=== PATIENT | female | born 1985 | race Two or more races ===

== ENCOUNTER 2017-05-10 07:27 | Day surgery (SDC) | payer MEDICAID ==
[2017-05-07 08:28] LABS: HEMATOCRIT 39.6 % (36.0-48.0); HEMOGLOBIN 13.5 g/dL (12-16); MCH 31.3 pg (26.0-34.0); MCHC 34.1 g/dL (31.0-37.0); MCV 91.7 fL (80.0-100.0); MEAN PLATELET VOLUME 9.5 fL (7.4-10.4); RBC 4.32 10x6/uL (4.00-5.40); RDW 12.9 % (11.5-14.5); WBC 10.2 10x3/uL (4.8-10.8)
[~2017-05-10] VITALS: Ht 154.9 cm; Wt 71.2 kg
[2017-05-10 05:48] VITALS: BP 112/71; Ht 154.9 cm; Wt 71.2 kg
[~2017-05-10 07:27] MED LIST: AMOXICILLIN875 MG PO; BACTRIM DS TABL1 TAB PO; FLUTICASONE PRO16 GM NASAL; HYDROCODONE-APA1 TAB PO; PHENERGAN25 M1 PO; SINGULAIR10 MG PO
[2017-05-10] MEDS ORDERED: HYDROCODONE-APA1 TAB PO (08:46)
--- NOTE | 2017-05-10 10:03 | NUR ---
1000 BREATHING EASY, FL DIET SERVED.
--- NOTE | 2017-05-10 10:32 | NUR ---
1030 BASIN PROVIDED, COOL CLOTH FOR FACE, ZOFRAN 4MG IV GIVEN.
--- NOTE | 2017-05-10 15:31 | OP ---
PATIENT NAME: MARTINA CAMACHO MEDICAL RECORD: [id number] :81 LOCATION:D.OPS ADMISSION DATE: SURGEON: FRANCIE ANDINO MD DATE OF OPERATION: 05/10/2017 PREOPERATIVE DIAGNOSIS: Painful hardware of the left clavicle. POSTOPERATIVE DIAGNOSIS: Painful hardware of the left clavicle. PROCEDURE: Removal of painful hardware of the left clavicle. SURGEON: Francie Andino MD ANESTHESIA: General. INTRAOPERATIVE COMPLICATIONS: None. SUMMARY OF PATHOLOGIC FINDINGS: Clavicle was well healed, the plate was removed with a little degree of difficulty. OPERATIVE SUMMARY IN DETAIL: After obtaining the appropriate preoperative orthopedic surgery consent as well as anesthetic consultation, evaluation and clearance, the patient was brought to the operating room and placed on the operating table in supine position. After adequate general laryngeal mask was administered, the patient was placed in slight beach chair position. The left clavicular and shoulder were prepped and draped in a routine sterile fashion. An incision was made over the previous incision taken directly down to the plate. Serial and sequential removal of the screws followed by removal of the plate was done. The wound was copiously irrigated and closed with 2-0 Vicryl followed by 4-0 Prolene in running fashion. Sterile dressings were applied. The patient was awakened and taken to recovery room in stable condition. All final needle and sponge counts were correct. 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
== END 2017-05-10 11:45 | disposition home or self-care (01) ==
LOC: D.OPS 07:27 → D.PAN 07:30 → D.OPS 11:45
PROVIDERS: Anesthesiology
DX: T85.848A Pain due to other internal prosthetic devices, implants and grafts, initial encounter (principal); J45.909 Unspecified asthma, uncomplicated; Z01.812 Encounter for preprocedural laboratory examination

== ENCOUNTER 2019-05-23 15:45 | Emergency (ER) | payer MEDICAID ==
[~2019-05-23] VITALS: Ht 154.9 cm; Wt 72.7 kg
[2019-05-23 15:56] VITALS: Ht 154.9 cm; Wt 72.7 kg
[2019-05-23 16:30] LABS: BASOPHILS 0.2 % (0-2); EOSINOPHILS 1.5 % (0-7); HEMATOCRIT 37.2 % (36.0-48.0); HEMOGLOBIN 12.8 g/dL (12-16); IMMATURE GRANULOCYTES 0.3 % (0-5); LYMPHOCYTES 34.9 % (15-50); MCH 30.2 pg (26.0-34.0); MCHC 34.4 g/dL (31.0-37.0); MCV 87.7 fL (80.0-100.0); MEAN PLATELET VOLUME 9.8 fL (7.4-10.4); MONOCYTES 7.2 % (2-11); NEUTROPHILS 55.9 % (40-80); PLATELET COUNT 277 10x3/uL (130-400); RBC 4.24 10x6/uL (4.00-5.40); RDW 12.5 % (11.5-14.5); WBC 11.6 10x3/uL (4.8-10.8)
[2019-05-23 16:48] LABS: ALBUMIN 3.6 g/dL (3.4-5.0); ALKALINE PHOSPHATASE 77 U/L (46-116); ALT (SGPT) 15 U/L (10-68); BILIRUBIN - TOTAL 0.31 mg/dL (0.2-1.3); CALC OSMOLALITY 284 mosm/kg (275-300); CALCIUM 8.3 mg/dL (8.5-10.1); CARBON DIOXIDE 28.5 mmol/L (21.0-32.0); CHLORIDE - SERUM 107 mmol/L (98-107); CREATININE - SERUM 0.8 mg/dL (0.6-1.3); GLUCOSE 77 mg/dL (74-106); POTASSIUM - SERUM 3.1 mmol/L (3.5-5.1); SODIUM 143 mmol/L (136-145); UREA NITROGEN 16 mg/dL (7-18); eGFR NON AFRICAN AMERICAN 86 mL/min (90-120)
[2019-05-23 16:59] LABS: APPEARANCE CLEAR (CLEAR); BILIRUBIN NEGATIVE (NEGATIVE); COLOR YELLOW (YELLOW); GLUCOSE NEGATIVE (NEGATIVE); KETONE NEGATIVE (NEGATIVE); NITRITE NEGATIVE (NEGATIVE); PROTEIN NEGATIVE (NEGATIVE); UROBILINOGEN NORMAL (NORMAL)
[2019-05-23 17:00] LABS: HCG URINE NEGATIVE (NEGATIVE)
[2019-05-23 19:38] VITALS: BP 104/64
== END 2019-05-23 19:38 | disposition home or self-care (01) ==
LOC: D.ER 15:45
PROVIDERS: Family Medicine
DX: G43.909 Migraine, unspecified, not intractable, without status migrainosus (principal); E87.6 Hypokalemia; T43.215A Adverse effect of selective serotonin and norepinephrine reuptake inhibitors, initial encounter

== ENCOUNTER 2019-06-12 11:23 | Day surgery (SDC) | payer MEDICAID ==
[~2019-06-12] VITALS: Ht 154.9 cm; Wt 72.6 kg
[~2019-06-12 11:23] MED LIST changes: +ZANAFLEX4 MG PO
[2019-06-12 11:47] LABS: HEMATOCRIT 39.4 % (36.0-48.0); MCH 29.7 pg (26.0-34.0); MCV 90.2 fL (80.0-100.0); MEAN PLATELET VOLUME 9.6 fL (7.4-10.4); RBC 4.37 10x6/uL (4.00-5.40); RDW 12.8 % (11.5-14.5); WBC 8.1 10x3/uL (4.8-10.8)
[2019-06-12 12:58] VITALS: BP 110/61; Ht 154.9 cm; Wt 72.6 kg
[2019-06-12] MEDS ORDERED: HYDROCODON-ACE1 EA10 PO (17:52)
--- NOTE | 2019-06-16 14:29 | OP ---
PATIENT NAME: MARTINA CAMACHO MEDICAL RECORD: [id number] :83 LOCATION:D.OPS ADMISSION DATE: SURGEON: FRANCIE ANDINO MD DATE OF OPERATION: 06/12/2019 PREOPERATIVE DIAGNOSIS: Discoid lateral meniscus. POSTOPERATIVE DIAGNOSIS: Discoid lateral meniscus. PROCEDURE: Arthroscopic partial lateral meniscectomy -- saucerization of discoid lateral meniscus. SURGEON: Francie Andino MD NECKTIE TURNER: Scotty Maciel APN INTRAOPERATIVE COMPLICATIONS: None. SUMMARY OF PATHOLOGIC FINDINGS: The patient had an incomplete discoid lateral meniscus with a very small, but very mobile mid substance tear. The lateral meniscus was extremely mobile and with mobilization had a mid substance fold. There was slight squaring of the medial femoral condyle, but no chondromalacia was noted. OPERATIVE SUMMARY IN DETAIL: After obtaining the appropriate preoperative orthopedic surgery consent as well as anesthetic consultation, evaluation and clearance, the patient was brought to the operating room and placed on the operating table in supine position. After general laryngeal mask airway was administered, tourniquet was placed about the proximal aspect of left lower extremity. Left lower extremity was then prepped and draped in routine sterile fashion. Leg was elevated, exsanguinated and tourniquet was inflated to 350 mmHg. Routine inferolateral portal was established followed by superomedial portal and inferomedial portal. Diagnostic arthroscopy did indeed reveal the patient to have a partial discoid lateral meniscus with the above findings. Combination of meniscotomes as well as arthroscopic resector was utilized to saucerize the meniscus back to what appeared to be more normal in its appearance. The distal femur was actually quite clear of any chondromalacia. Having completed complete saucerization with partial lateral meniscectomy, the knee was insufflated with 30 cc of 0.25% Marcaine with epinephrine and 40 mg Depo-Medrol. Arthroscopy portals were closed in routine interrupted fashion using 4-0 Prolene. Sterile dressings were applied. The patient was awakened and taken to recovery room in stable condition. All final needle and sponge counts were correct. TRANSINT:[id number] Voice Confirmation ID: [id number] DOCUMENT ID: [id number] FRANCIE ANDINO MD at 2617 CC: [id number] DICTATION DATE: 06/16/19 1135 CANDY DIPPER HAND: 06/16/19 1150 [facility] 06/12/19 [facility] [address] [facility] [place] [address]
== END 2019-06-12 19:45 | disposition home or self-care (01) ==
LOC: D.OPS 11:23 → D.PAN 13:00 → D.OPS 14:30 → D.PAN 14:50 → D.OPS 15:00
PROVIDERS: Anesthesiology; ATTEND Orthopaedic Surgery
DX: M23.301 Other meniscus derangements, unspecified lateral meniscus, left knee (principal)

== ENCOUNTER → 2019-07-17 08:01 | Outpatient (CLI) | payer MEDICAID ==
[2019-06-12 12:58] VITALS: BMI 30.3
[~2019-07-17 08:01] MED LIST changes: +HYDROCODON-ACE1 EA10 PO
== END | disposition home or self-care (01) ==
LOC: D.MRI 08:01
PROVIDERS: ATTEND Clinical Nurse Specialist Family Health
DX: M25.561 Pain in right knee (principal)

== ENCOUNTER → 2020-03-29 00:12 | Outpatient (CLI) | payer MEDICAID ==
[2019-06-12 12:58] VITALS: BMI 30.3
[2020-03-29 00:25] LABS: BASOPHILS 0.3 % (0-2); EOSINOPHILS 2.4 % (0-7); HEMATOCRIT 41.8 % (36.0-48.0); HEMOGLOBIN 13.7 g/dL (12-16); IMMATURE GRANULOCYTES 0.3 % (0-5); MCH 31.1 pg (26.0-34.0); MCHC 32.8 g/dL (31.0-37.0); MCV 94.8 fL (80.0-100.0); MEAN PLATELET VOLUME 10.3 fL (7.4-10.4); MONOCYTES 8.7 % (2-11); NEUTROPHILS 53.3 % (40-80); PLATELET COUNT 326 10x3/uL (130-400); RBC 4.41 10x6/uL (4.00-5.40); RDW 12.7 % (11.5-14.5); WBC 7.2 10x3/uL (4.8-10.8)
[2020-03-29 00:42] LABS: C-REACTIVE PROTEIN 0.4 mg/dL (0.0-0.9); URIC ACID 3.9 mg/dL (2.6-7.2)
[2020-03-29 01:46] LABS: ERYTHROCYTE SEDIMENTATION RATE 15 mm/hr (0-20)
[2020-04-01 12:09] LABS: ANA REFLEX - DIRECT Negative (Negative)
== END | disposition home or self-care (01) ==
LOC: D.LABREF 00:12
PROVIDERS: ATTEND Clinical Nurse Specialist Family Health
DX: M13.0 Polyarthritis, unspecified (principal)

== ENCOUNTER 2020-05-27 08:05 | Day surgery (SDC) | payer MEDICAID ==
[2020-05-23 10:48] LABS: HEMOGLOBIN 14.5 g/dL (12-16); MCH 30.7 pg (26.0-34.0); MCHC 33.7 g/dL (31.0-37.0); MCV 91.1 fL (80.0-100.0); MEAN PLATELET VOLUME 9.9 fL (7.4-10.4); RBC 4.72 10x6/uL (4.00-5.40); RDW 12.5 % (11.5-14.5); WBC 7.6 10x3/uL (4.8-10.8)
[~2020-05-27] VITALS: Ht 157.5 cm; Wt 72.6 kg
[~2020-05-27 08:05] MED LIST changes: +LYRICA50 MG PO; +ULTRAM50 MG
[2020-05-27 08:37] VITALS: BP 112/74; Ht 157.5 cm; Wt 72.6 kg
[2020-05-27] MEDS ORDERED: HYDROCODON-ACE1 EA10 PO (10:22)
--- NOTE | 2020-05-27 12:28 | NUR ---
PATIENT DISCHARGED HOME VIA WHEELCHAIR TO PRIVATE VEHICLE WITH [id number]. WHILE WHEELING TO THE CAR, PATIENT BECOMES NAUSEATED BUT HAS NO EMESIS. PATIENT SNIFFING ON RUBBING ALCOHOL WIPE. PROMETHAZINE #10 CALLED IN TO [facility] FOR PATIENTS, SPOKE WITH PHARMACIST RICHIE
--- NOTE | 2020-05-29 13:14 | OP ---
PATIENT NAME: MARTINA CAMACHO MEDICAL RECORD: [id number] :81 LOCATION:D.OPS ADMISSION DATE: SURGEON: FRANCIE ANDINO MD DATE OF OPERATION: 05/27/2020 PREOPERATIVE DIAGNOSIS: Lateral meniscus tear of the right knee. POSTOPERATIVE DIAGNOSIS: Lateral meniscus tear of the right knee. PROCEDURE: Arthroscopic partial lateral meniscectomy. SURGEON: Francie Andino MD ANESTHESIA: General. INTRAOPERATIVE COMPLICATIONS: None. SUMMARY OF PATHOLOGIC FINDINGS: The patient had a tear of the lateral meniscus at the posterior medial root of the lateral meniscus; however, it was not into the root. It was torn from just in front of the root in a radial beak type tear. No other pathology was found. The patient was noted to have a discoid lateral meniscus on the contralateral side a year ago. She did not have a discoid lateral meniscus and the other 3 compartments including menisci were pristine. OPERATIVE SUMMARY IN DETAIL: After obtaining the appropriate preoperative orthopedic surgery consent as well as anesthetic consultation, evaluation and clearance, the patient was brought to the operating room and placed on table in supine position. After general laryngeal mask airway was administered, tourniquet was placed about the proximal aspect of the right lower extremity. Right lower extremity was then prepped and draped in routine sterile fashion. The leg was elevated and exsanguinated, tourniquet was inflated to 350 mmHg. At this point, the appropriate timeout was taken and agreed upon by all given the patient's unique identifiers. Inferolateral portal was established followed by superomedial portal and inferomedial portal. Diagnostic arthroscopy showed pristine medial meniscus as well as a pristine lateral meniscus except for the tear that was described above. Combination of meniscotomes as well as an arthroscopic resector were utilized to gently debride this part of the meniscus, which had clearly caused some aggravation, but no chondromalacia. Having completed this, the knee was insufflated with 30 cc of 0.25% Marcaine with epinephrine and 40 mg of Depo-Medrol. Arthroscopy portals were closed in routine interrupted fashion using 4-0 Prolene. Sterile dressings were applied. The patient was awakened and taken to recovery room in stable condition. All final needle and sponge counts were correct. TRANSINT:[id number] Voice Confirmation ID: [id number] DOCUMENT ID: [id number] OPERATIVE REPORT [id number] MARTINA CAMACHO MD, FRANCIE ELLIOTT at 1314 CC: [id number] DICTATION DATE: 05/29/20723 FO[employer] SERVICE CASHIER: 05/29/20 1232 [facility] 05/27/20 [id number] [place] [id number]
== END 2020-05-27 12:28 | disposition home or self-care (01) ==
LOC: D.OPS 08:05 → D.PAN 12:35 → D.OPS 13:00
PROVIDERS: Anesthesiology; ATTEND Orthopaedic Surgery
DX: S83.281A Other tear of lateral meniscus, current injury, right knee, initial encounter (principal); X58.XXXA Exposure to other specified factors, initial encounter; M25.561 Pain in right knee